=== PATIENT | female | born 1960 | race Caucasian/White ===

== ENCOUNTER 2019-04-11 08:50 | Observation (INO) | payer SELFPAY ==
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
[2019-04-11] MEDS: Ondansetron 4 MG Tab.DIS PO ONE (11:27)
[2019-04-11] MEDS ORDERED: MVI, Adult with Vitamin K 10 ML, Thiamine 100 MG, Folic Acid 1 MG, Magnesium Sulfate 3 ... IV SCH ×5 (15:00)
[2019-04-11] MEDS: Ondansetron 4 MG Tab.DIS ONE (16:30)
[2019-04-11] MEDS: Sodium Chloride 0.9% 500 ML IV ONE (17:10)
[2019-04-11] MEDS: amLODIPine 2.5 MG Tab PO SCH (17:16)
[2019-04-11] MEDS: amLODIPine 2.5 MG Tab ONE (17:28)
[2019-04-11] MEDS: Acetaminophen 325 MG Tab PO PRN (19:20)
[2019-04-11] MEDS: LORazepam 0.5 MG Tab PO PRN (19:35)
[2019-04-11] MEDS: cloNIDine 0.1 MG Tab PO ONE (20:48)
[2019-04-12] MEDS: Acetaminophen 650 MG Tab.ER PO PRN (03:08)
[2019-04-12] MEDS: amLODIPine 5 MG Tab PO SCH (08:04)
[2019-04-12] MEDS: DESVENLAFAXINE PO SCH (08:04)
--- NOTE | 2019-04-12 17:42 | PCM.DCSUM1 ---
Discharge Summary - Hospital Course HPI Initial Comments: 59 yr female presented to ER 04-11-19 via Law Enforcement with report of self harm and threats to commit suicide with hanging self with her shirt. Pt states chronic depression and is taking Pristiq and received her medication late compared to her usual, at the [facility]. She is upset about her dogs and being displaced from her while in [facility]. She has no official charge and law enforcement states she is furloughed, although her vehicle is at the law enforcement center, her dog is at the pound and she has no transportation. A behavioral health assessment was completed with assist of [facility] staff and no suicide ideation at this time and chronic depression. Pt place on observation over night, she has been stable and no threats of self harm. She is taking her medications and eating well. She denies regular use of alcohol. Discussed possible DT's without alcohol use and she denies regular alcohol ingestion. BP is elevated and she states she did have medication for this in the past, but hasn't been to her provider for about 3 years. Rx Amlodipine 5mg PO daily started. Will discharge today to self care with rx for Amlodipine. Recommend follow-up with primary care provider next week. She is requesting to notify law enforcement of her discharge, so she can get her dog and her vehicle. Staff did notify law enforcement at her request. Diagnosis: Stroke: No - Discharge Data Discharge Date: 04/12/19 Discharge Disposition: Home, Self-Care 01 Condition: Good - Discharge Diagnosis/Problem(s) (1) Depressive disorder SNOMED Code(s): 27231079 ICD Code: F32.9 - MAJOR DEPRESSIVE DISORDER, SINGLE EPISODE, UNSPECIFIED Status: Acute (2) Hypertension SNOMED Code(s): 89768139 ICD Code: I10 - ESSENTIAL (PRIMARY) HYPERTENSION Status: Acute (3) Self-harm SNOMED Code(s): 706889508 ICD Code: [id number] - Status: Acute - Patient Instructions Diet: Regular Diet as Tolerated Activity: As Tolerated Driving: May Drive Today Showering/Bathing: May Shower Other/Special Instructions: Return to primary care provider next week for follow -up. Continue medications as prescribed. Fill the Rx for Amlodipine today and start tomorrow. Dose given today. - Discharge Plan *PRESCRIPTION DRUG MONITORING PROGRAM REVIEWED*: Not Applicable *COPY OF PRESCRIPTION DRUG MONITORING REPORT IN PATIENT SUSANNE: Not Applicable Prescriptions/Med Rec: amLODIPine [Norvasc] 5 mg PO DAILY #30 tablet Home Medications: Home Meds Desvenlafaxine [Pristiq] 50 mg PO DAILY 04/11/19 [History] amLODIPine [Norvasc] 5 mg PO DAILY #30 tablet 04/12/19 [Rx] Patient Handouts: Living With Depression, Amlodipine tablets Forms: ED Department Discharge Referrals: PCP,None [Primary Care Provider] - - Discharge Summary/Plan Comment DC Time >30 min.: No (20 minutes spent counseling pt on medication and F/U w PCP ) Discharge Summary/Plan Comment: Amlodipine 5 mg PO daily. Continue with Pristiq as prescribed. F/U with PCP next week. - General Info Date of Service: 04/12/19 Admission Dx/Problem (Free Text: depression and self harm Functional Status: Reports: Pain Controlled, Tolerating Diet, Ambulating, Urinating - Review of Systems General: Reports: No Symptoms HEENT: Reports: Headaches. Denies: Visual Changes Pulmonary: Reports: No Symptoms Cardiovascular: Reports: No Symptoms Gastrointestinal: Reports: No Symptoms Genitourinary: Reports: No Symptoms Musculoskeletal: Reports: No Symptoms Skin: Reports: No Symptoms Neurological: Reports: No Symptoms Psychiatric: Reports: Depression (chronic depression, declines behavioral health counseling) - Patient Data Vitals - Most Recent: Last Vital Signs Temp 97.9 F 04/12/19 08:00 Pulse 84 04/12/19 09:00 Resp 16 04/12/19 09:00 BP 157/118 H 04/12/19 09:00 Pulse Ox 99 04/12/19 09:00 Weight - Most Recent: 345 lb 10.957 oz Med Orders - Current: Current Medications Discontinued Medications Acetaminophen (Tylenol) 325 mg PO Q4H PRN PRN Reason: Pain Last Admin: 04/11/19 19:20 Dose: 650 mg Acetaminophen (Tylenol Arthritis Pain) 650 mg PO Q4HR PRN PRN Reason: Pain Last Admin: 04/12/19 03:08 Dose: 650 mg Amlodipine Besylate (Norvasc) 2.5 mg PO DAILY MARCE Last Admin: 04/11/19 17:16 Dose: 2.5 mg Amlodipine Besylate (Norvasc) Confirm Administered Dose 2.5 mg .ROUTE .STK-MED ONE Stop: 04/11/19 17:16 Last Admin: 04/11/19 17:28 Dose: Not Given Amlodipine Besylate (Norvasc) 5 mg PO DAILY [facility] Last Admin: 04/12/19 08:04 Dose: 5 mg Clonidine HCl (Catapres) 0.1 mg PO ONETIME ONE Stop: 04/11/19 20:41 Last Admin: 04/11/19 20:48 Dose: 0.1 mg Multivitamins/Minerals 10 ml/Thiamine HCl 100 mg/ Folic Acid 1 mg/ Magnesium Sulfate 3 gm/ Sodium Chloride 1,017.2 mls @ 125 mls/hr IV ASDIRECTED [facility] Sodium Chloride (Normal Saline) 500 mls @ 250 mls/hr IV .BOLUS ONE Stop: 04/11/19 17:16 Last Admin: 04/11/19 17:10 Dose: 250 mls/hr Lorazepam (Ativan) 0.5 mg PO Q4H PRN; Protocol PRN Reason: Anxiety Last Admin: 04/11/19 19:35 Dose: 0.5 mg Apo-Desvenlafaxine (50mg Tablets) 1 each PO DAILY [facility] Last Admin: 04/12/19 08:04 Dose: 1 each Ondansetron HCl (Zofran Odt) 4 mg PO ONETIME ONE Stop: 04/11/19 11:25 Last Admin: 04/11/19 11:27 Dose: 4 mg Ondansetron HCl (Zofran Odt) Confirm Administered Dose 4 mg .ROUTE .STK-MED ONE Stop: 04/11/19 11:35 Last Admin: 04/11/19 16:30 Dose: Not Given - Exam General: Reports: Alert, Oriented, Cooperative, No Acute Distress HEENT: Reports: Pupils Equal, Pupils Reactive Neck: Reports: Supple, Trachea Midline Lungs: Reports: Clear to Auscultation, Normal Respiratory Effort Cardiovascular: Reports: Regular Rate, Regular Rhythm GI/Abdominal Exam: Soft, Non-Tender (Female) Exam: Deferred Rectal (Female) Exam: Deferred Back Exam: Reports: Normal Inspection, Full Range of Motion Extremities: Normal Inspection, Normal Range of Motion, No Pedal Edema, Normal Capillary Refill Skin: Reports: Warm, Dry, Intact Neurological: Reports: No New Focal Deficit Psy/Mental Status: Reports: Alert, Normal Affect, Normal Mood
== END 2019-04-12 10:00 | disposition home or self-care (01) ==
LOC: LB.ED 08:50 → LB.MS 15:05 → EEVIPCON 15:14 → UNDOADMOB 15:14
PROVIDERS: ADMIT Nurse Practitioner Family; ATTEND Nurse Practitioner Family
DX: F32.9 Major depressive disorder, single episode, unspecified (principal); T14.91XA Suicide attempt, initial encounter; I10 Essential (primary) hypertension; Z79.899 Other long term (current) drug therapy; Z88.5 Allergy status to narcotic agent; X83.8XXA Intentional self-harm by other specified means, initial encounter
CPT/HCPCS: 36415; 80053; 80307; 81001; 84443; 85025; 96360; 96361; 99284; A0425; A0429; A9270; G0378; G0480; J7040